=== PATIENT | male | born 1955 | race Caucasian/White ===

== ENCOUNTER → 2018-09-09 | Outpatient (CLI) | payer OTHER ==
[2018-05-30 15:00] VITALS: BP 107/73
[~2018-09-09] MED LIST: AMIO200T4 PO; APIX5TAB PO; DOXY100C2 PO; FURO-69 PO; METO100T5 PO; METO200T46 PO; METO50TA6 PO; POLY17PO29 PO
--- NOTE | 2018-09-09 11:50 | CARD ---
MR#: [id number] Date of Study: 09/09/2018 Ordering Physician: SHEFALI JOSHI, Referring Physician: SHEFALI JOSHI, Tech: Devi Ray [facility] APPROVED REPORT EXAM: Two-dimensional and M-mode echocardiogram with Doppler and color Doppler. Other Information Quality : AverageHR: 50bpm Rhythm : BradycardiaTechnically limited study due to smoking. INDICATION Atrial Fibrillation 2D DIMENSIONS RVDd3.4 (2.9-3.5cm)Left Atrium(2D)4.1 (1.6-4.0cm) IVSd1.0 (0.7-1.1cm)Aortic Root(2D)3.4 (2.0-3.7cm) LVDd5.3 (3.9-5.9cm)LVOT Diameter2.2 (1.8-2.4cm) PWd0.8 (0.7-1.1cm)LVDs4.1 (2.5-4.0cm) FS (%) 22.0 %SV58.6 ml LVEF(%)45.0 (>50%) Aortic Valve AoV Peak Porfirio.137.8cm/sAoV VTI31.5cm AO Peak GR.7.6mmHgLVOT Peak Porfirio.115.1cm/s AO Mean GR.5mmHgAVA (VMAX)3.31cm2 MAK (VTI)3.00cm2 Mitral Valve MV E Tkubbeql94.3cm/sMV DECEL ZPUF211nn MV A Vtbpvyxo91.3cm/sE/A Ratio0.8 Pulmonary Valve PV Peak Gtivkpic90.9cm/s Tricuspid Valve TR P. Qwuasjpo635sr/sRAP IRSDBBWX1rmGp TR Peak Gr.91ixQlWPTE05fwGu Pulmonary Vein S1 Cdawhlsy96.8cm/sD2 Bxdspewu87.7cm/s PVa jypibbnm01npma LEFT VENTRICLE The left ventricle is normal size. There is normal left ventricular wall thickness. Left ventricle sy stolic function is low normal. The Ejection Fraction is 45-50%. There is mild global hypokinesis of t he left ventricle. Transmitral Doppler flow pattern is Grade II-pseudonormal filling dynamics. RIGHT VENTRICLE The right ventricle is normal size. There is normal right ventricular wall thickness. The right ventr icular systolic function is normal. ATRIA The left atrium is mildly dilated. The right atrium size is normal. The interatrial septum is intact with no evidence for an atrial septal defect or patent foramen ovale as noted on 2-D or Doppler imagi ng. AORTIC VALVE The aortic valve is calcified but opens well. The aortic valve is trileaflet. Doppler and Color Flow revealed no significant aortic regurgitation. There is no significant aortic valvular stenosis. There is no aortic valvular vegetation. MITRAL VALVE The mitral valve is normal in structure and function. There is no evidence of mitral valve prolapse. There is no mitral valve stenosis. Doppler and Color-flow revealed trace mitral regurgitation. TRICUSPID VALVE The tricuspid valve is normal in structure and function. Doppler and Color Flow revealed trace tricus pid regurgitation. The PA pressure was estimated at 25 mmHg. There is no tricuspid valve prolapse or vegetation. There is no tricuspid valve stenosis. PULMONIC VALVE The pulmonary valve is normal in structure and function. Doppler and Color Flow revealed no pulmonic valvular regurgitation. There is no pulmonic valvular stenosis. GREAT VESSELS The aortic root is normal in size. The IVC is normal in size and collapses >50% with inspiration. PERICARDIAL EFFUSION There is no evidence of significant pericardial effusion. Critical Notification Critical Value: No <Conclusion> Left ventricle systolic function is low normal. The Ejection Fraction is 45-50%. There is mild global hypokinesis of the left ventricle. Technically difficult study Signed by : Shefali Joshi, Electronically Approved : 09/09/2018 11:50:03
== END | disposition home or self-care (01) ==
LOC: ECHO 10:33
PROVIDERS: ATTEND Internal Medicine Cardiovascular Disease
DX: I35.8 Other nonrheumatic aortic valve disorders (principal); I48.91 Unspecified atrial fibrillation
CPT/HCPCS: 93306

== ENCOUNTER → 2020-12-28 | Outpatient (CLI) | payer OTHER ==
[2018-05-30 15:00] VITALS: BP 107/73
[~2020-12-28] MED LIST changes: -AMIO200T4 PO; +AMIO200T6 PO; -DOXY100C2 PO; +DOXY100C3 PO
--- NOTE | 2020-12-28 22:28 | CARD ---
MR#: [id number] Date of Study: 12/28/2020 Ordering Physician: SHEFALI ARBOLEDA, Referring Physician: SHEFALI ARBOLEDA, Tech: Raiza Tripp, [facility] APPROVED REPORT EXAM: Two-dimensional and M-mode echocardiogram with Doppler and color Doppler. Other Information Quality : FairHR: 104bpm Technically limited study due to body habitus. INDICATION COPD Atrial Fibrillation RISK FACTORS Hyperlipidemia Smoking 2D DIMENSIONS Left Atrium(2D)3.0 (1.6-4.0cm)IVSd1.0 (0.7-1.1cm) Aortic Root(2D)3.6 (2.0-3.7cm)LVDd5.1 (3.9-5.9cm) LVOT Diameter2.1 (1.8-2.4cm)PWd0.8 (0.7-1.1cm) LVDs3.0 (2.5-4.0cm)FS (%) 40.1 % SV85.5 mlLVEF(%)70.5 (>50%) Aortic Valve AoV Peak Porfirio.106.3cm/sAoV VTI16.5cm AO Peak GR.4.5mmHgLVOT Peak Porfirio.92.2cm/s LVOT VTI 14.80cmAO Mean GR.2mmHg MAK (VMAX)2.28ze4OCX (VTI)3.09cm2 Mitral Valve MV E Mvrjkzej55.7cm/sMV DECEL XSAG133op MV A Afvjeddf70.9cm/sMV WSN06nz E/A Ratio1.9MVA (PHT)4.47cm2 TDI E/Lateral E'14.3E/Medial E'12.2 Pulmonary Valve PV Peak Wnzjogxk30.8cm/sPV Peak Grad.3mmHg Tricuspid Valve TR P. Qsqigeri049zd/sRAP [id number] TR Peak Gr.83yjMrNUEN87tpYj LEFT VENTRICLE The left ventricle is normal size. There is normal left ventricular wall thickness. The left ventricu lar systolic function is mild to moderately decreased. EF 40%. Setal motion consistent with conductio n abnormality. There is moderate global hypokinesis. Tissue Doppler imaging reveals moderate left martínez tricular diastolic dysfunction. RIGHT VENTRICLE The right ventricle is borderline dilated. There is normal right ventricular wall thickness. The righ t ventricular systolic function is normal. ATRIA The left atrium size is normal. The right atrium is borderline dilated. The interatrial septum is int act with no evidence for an atrial septal defect or patent foramen ovale as noted on 2-D or Doppler i maging. AORTIC VALVE The aortic valve is not well visualized. Doppler and Color Flow revealed no significant aortic regurg itation. Calculated aortic valve area is 3.3 cm2 with maximum pressure gradient of 5 mmHg and mean pr essure gradient of 2 mmHg. There is no aortic valvular vegetation. MITRAL VALVE The mitral valve is normal in structure and function. There is no evidence of mitral valve prolapse. There is no mitral valve stenosis. Doppler and Color-flow revealed trace mitral regurgitation. TRICUSPID VALVE The tricuspid valve is not well visualized. Doppler and Color Flow revealed trace tricuspid regurgita tion with an estimated PAP of 18 mmHg. There is no tricuspid valve stenosis. PULMONIC VALVE The pulmonic valve is not well visualized. Doppler and Color Flow revealed no pulmonic valvular regur gitation. There is no pulmonic valvular stenosis. GREAT VESSELS The aortic root is normal in size. The IVC is normal in size and collapses >50% with inspiration. PERICARDIAL EFFUSION There is no evidence of significant pericardial effusion. Critical Notification Critical Value: No <Conclusion> The left ventricular systolic function is mild to moderately decreased. EF 40%. Setal motion consistent with conduction abnormality. There is moderate global hypokinesis. Signed by : Shefali Arboleda, Electronically Approved : 12/28/2020 22:28:10
== END ==
LOC: ECHO 13:35
PROVIDERS: ATTEND Internal Medicine Cardiovascular Disease
DX: I48.0 Paroxysmal atrial fibrillation (principal)
CPT/HCPCS: 93306